=== PATIENT | male | born 1955 | race Caucasian/White ===

== ENCOUNTER 2020-11-20 07:21 | Day surgery (SDC) | payer MEDICARE, OTHER, SELFPAY ==
[2020-11-14 11:27] VITALS: BMI 30.5
--- NOTE | 2020-11-19 08:33 | HO.ANESPROP2 ---
Documented by User: Diane Cox 11/19/20 08:34 HPI - Anesthesia Eval Consult details Narrative: 65yo M for Upper Endoscopy and Colonoscopy [facility] Past Medical History Medical History Anemia Cancer COPD (chronic obstructive pulmonary disease) Diabetes Elevated cholesterol GERD (gastroesophageal reflux disease) HTN (hypertension) Peptic ulcer PVD (peripheral vascular disease) Surgical History Surgical History H/O colonoscopy History of esophagogastroduodenoscopy (EGD) Hx of arthroscopic knee surgery Hx of sinus surgery Status post surgical removal of malignant neoplasm of skin Social History Social History Alcohol intake: never Smoking Status: Current every day smoker Tobacco Type: Cigarette Packs Per Day: 1 Cigarettes Per Day: 20.0 Smoked in Last 30 Days: Yes Use of substances other than those prescribed or required for medical reasons: No Have you been hit, kicked, punched, or otherwise hurt by someone within the past year? If so, by whom?: No Advance Directives: No Advance Directives Information Provided: No Meds Allergies Allergy/AdvReac Type Severity Reaction Status Date / Time aspirin [ASPIRIN] AdvReac Intermediate GI UPSET, Verified 11/14/20 11:31 irritates stomach Home Medications Medication Instructions Recorded Confirmed Type Advair Diskus 11/14/20 History Januvia 11/14/20 History Spiriva with HandiHaler 11/14/20 11/14/20 History albuterol sulfate [ProAir HFA] 2 puff INHALATION Q4-6H PRN 11/14/20 11/14/20 History aspirin [Aspirin Low-Strength] 81 mg PO DAILY 11/14/20 11/14/20 History atorvastatin 40 mg PO BEDTIME 11/14/20 11/14/20 History cilostazol 11/14/20 History glipizide 11/14/20 History lisinopril 30 mg PO DAILY 11/14/20 11/14/20 History metformin 1,000 mg PO BID 11/14/20 11/14/20 History omeprazole 20 mg PO BID 11/14/20 11/14/20 History Exam Exam Date and Time: November 19, 2020 0833 Height,Weight and Vital Signs: Height 5 ft 9 in Weight 93.894 kg Assessment and Plan Assessment Anesthesia Assessment: Chart Reviewed Documented by User: Nasrin Marroquin 11/20/20 07:49 PMFSH Past Medical History Medical History Anemia Cancer COPD (chronic obstructive pulmonary disease) Diabetes Elevated cholesterol GERD (gastroesophageal reflux disease) HTN (hypertension) Peptic ulcer PVD (peripheral vascular disease) Surgical History Surgical History H/O colonoscopy History of esophagogastroduodenoscopy (EGD) Hx of arthroscopic knee surgery Hx of sinus surgery Status post surgical removal of malignant neoplasm of skin Social History Social History Alcohol intake: never Smoking Status: Current every day smoker Tobacco Type: Cigarette Packs Per Day: 1 Cigarettes Per Day: 20.0 Smoked in Last 30 Days: Yes Use of substances other than those prescribed or required for medical reasons: No Have you been hit, kicked, punched, or otherwise hurt by someone within the past year? If so, by whom?: No Advance Directives: No Advance Directives Information Provided: No Meds Allergies Allergy/AdvReac Type Severity Reaction Status Date / Time aspirin [ASPIRIN] AdvReac Intermediate GI UPSET, Verified 11/14/20 11:31 irritates stomach Home Medications Medication Instructions Recorded Confirmed Type Advair Diskus 11/14/20 History Januvia 11/14/20 History Spiriva with HandiHaler 11/14/20 11/14/20 History albuterol sulfate [ProAir HFA] 2 puff INHALATION Q4-6H PRN 11/14/20 11/14/20 History aspirin [Aspirin Low-Strength] 81 mg PO DAILY 11/14/20 11/14/20 History atorvastatin 40 mg PO BEDTIME 11/14/20 11/14/20 History cilostazol 11/14/20 History glipizide 11/14/20 History lisinopril 30 mg PO DAILY 11/14/20 11/14/20 History metformin 1,000 mg PO BID 11/14/20 11/14/20 History omeprazole 20 mg PO BID 11/14/20 11/14/20 History Exam Airway Mallampati Class: III TM Dist: >3cm Neck ROM: Full
[2020-11-19 15:56] VITALS: BMI 30.5
[2020-11-20 07:49] VITALS: BP 156/82; PULSE 104; RESP 20; TEMP 36.3; O2SAT 98
[2020-11-20 07:51] LABS: Glucose, Whole Blood 215 mg/dL (60-115)
[2020-11-20] MEDS: Lactated Ringers 1,000 ML 100 ML IVCONT (07:57)
--- NOTE | 2020-11-20 08:17 | MHC.SHP ---
Pre-Procedural Eval Section B Chief Complaint: iron deficiency Details of Present Illness: see H&P no changes Relevant Family History (Specify if Yes): No Relevant Social History: None Present Medications: see Short Stay Collaborative assessment Medical History: No relevant PMH (see h&p) History of Previous Operations: No relevant previous surgery Allergies: Allergies Allergy/AdvReac Type Severity Reaction Status Date / Time aspirin [ASPIRIN] AdvReac Intermediate GI UPSET, Verified 11/14/20 11:31 irritates stomach Review of Systems Sugical H&P ROS: Negative: Constitution, Cardiovascular, Respiratory, Neurological, Psychiatric, Hem-Onc, Allergic/Immunologic, Gastrointestinal, Genitourinary, Musculoskeletal, Integumentary, Endocrine and Eyes/Ears/Nose/Throat Exam Surgical H&P Exam: Normal: HEENT, Normal: Heart, Normal: Lungs, Normal: Extremities, Normal: Abdomen, Normal: Skin and Normal: Neurological Plan Diagnosis/Plan: Unchanged I have reviewed the history and physical and performed a pertinent physical examination on my patient. No changes have occurred unless specified.
[2020-11-20 08:55] VITALS: BP 93/63; PULSE 103; RESP 20; TEMP 37.1; O2SAT 100
--- NOTE | 2020-11-20 08:55 | PM.OP ---
Brief Operative Note Date of Service: 11/20/20 Pre-op diagnosis: amelia Post-op diagnosis: same (colon polyp) Procedure: egd, colonoscopy Surgeon: Duncan Lopez Anesthesia: MAC Estimated blood loss (mL): 5 Pathology: other (duodenal, antral, egj biopsies, polyp 30 cm) Condition: stable Disposition: PACU
[2020-11-20 09:10] VITALS: BP 133/76; PULSE 83; RESP 16; TEMP 37.1; O2SAT 98
--- NOTE | 2020-11-20 09:18 | OP_ITS ---
cc: Mickey Chew MD~ SURGEON: Duncan Lopez MD INDICATIONS: Iron-deficiency anemia. PREOPERATIVE DIAGNOSIS: POSTOPERATIVE DIAGNOSIS: PROCEDURE PERFORMED: 1. Upper endoscopy with biopsy. 2. Colonoscopy to the cecum with snare polypectomy. ESTIMATED BLOOD LOSS: COMPLICATIONS: ANESTHESIA: ASSISTANTS: SPECIMENS: MEDICATIONS: Monitored anesthesia care. DESCRIPTION OF PROCEDURE: History and physical performed. The risks and benefits of the procedure were explained to the patient. Informed consent was obtained. The patient was placed in the left lateral decubitus position. The Olympus video gastroscope was introduced into the esophagus, stomach, and duodenum. Examination was performed and the scope was removed. He was repositioned for colonoscopy. A digital rectal exam was performed and was found to be normal. The Olympus pediatric video colonoscope was introduced into the rectum and advanced to the cecum without difficulty. The cecum was identified by transillumination, palpation, and identification of the ileocecal valve. Examination was performed and the scope was removed. He tolerated the procedure well and was taken to recovery area in stable condition. Abdominal wall pressure was used to assist in advancement of the scope due to looping in the sigmoid. FINDINGS: UPPER ENDOSCOPY: Esophagus: There was a nonobstructive Schatzki ring. There was no esophagitis. The EG junction was slightly irregular. This was biopsied. Stomach: Stomach showed no evidence of masses, ulcers, or polyps. Antral biopsies were obtained. Duodenum: The bulb and second portion were normal. Biopsies were obtained from the second portion. COLONOSCOPY: The terminal ileum was not examined. The visualized colonic mucosa was normal. The quality of the prep was fair with liquid stool that was suctioned. Single polyp measuring 6 mm was identified at 30 cm and removed with a snare. Several other hyperplastic appearing rectosigmoid polyps were not biopsied. Retroflexed examination showed internal hemorrhoids. There was mild sigmoid diverticulosis. IMPRESSION: 1. Iron-deficiency anemia. 2. Colon polyp. RECOMMENDATION: Follow up the biopsy results. MD CONNOR Rodrigez/MALIKL / [id number] MTDD
--- NOTE | 2020-11-20 09:50 | HO.POSTANES ---
Post Anesthesia Evaluation Post Anesthesia Evaluation Vital Signs: Vital Signs Temp Pulse Resp BP Pulse Ox 11/20/20 09:10 98.8 F 83 16 133/76 98 11/20/20 08:55 98.8 F 103 H 20 93/63 100 11/20/20 07:49 97.3 F 104 H 20 156/82 H 98 Anesthesia: Monitored Mental Status: Awake Pain Control: Satisfactory Nausea/Vomiting: None Hydration: Adequate Anesthesia-Related Issues: No Anes. Related Issues
== END 2020-11-20 09:30 | disposition home or self-care (01) ==
PROVIDERS: PCP Internal Medicine; Visit Provider Internal Medicine Gastroenterology
PROC: (CPT 45385; principal; 2020-11-20 08:20)
DX: D50.9 Iron deficiency anemia, unspecified (principal); D12.5 Benign neoplasm of sigmoid colon; K57.30 Diverticulosis of large intestine without perforation or abscess without bleeding; K64.8 Other hemorrhoids; Z83.71 Family history of colonic polyps; K21.9 Gastro-esophageal reflux disease without esophagitis; J44.9 Chronic obstructive pulmonary disease, unspecified; I10 Essential (primary) hypertension; I73.9 Peripheral vascular disease, unspecified; E11.9 Type 2 diabetes mellitus without complications; Z79.84 Long term (current) use of oral hypoglycemic drugs; Z79.51 Long term (current) use of inhaled steroids; Z79.899 Other long term (current) drug therapy; Z79.82 Long term (current) use of aspirin; F17.210 Nicotine dependence, cigarettes, uncomplicated; Z87.11 Personal history of peptic ulcer disease; Z85.828 Personal history of other malignant neoplasm of skin
CPT/HCPCS: 45385; 43239; 82947; 88305; 88342